=== PATIENT | male | born 1985 | race Asian ===

== ENCOUNTER 2017-10-13 19:54 | Emergency (ER) | payer OTHER ==
[~2017-10-13] VITALS: Ht 182.9 cm; Wt 86.2 kg
[2017-10-13] MEDS ORDERED: ZYPREXA ZYDI20 MG PO (20:00)
[2017-10-13] MEDS ORDERED: TRILEPTAL150 MG PO (20:01)
== END 2017-10-13 21:29 ==
LOC: ED 19:54
PROC: 2W3CX1Z Immobilization of Right Lower Arm using Splint (ICD-10-PCS; principal; 2017-10-13)
DX: S60.221A Contusion of right hand, initial encounter (principal); S00.93XA Contusion of unspecified part of head, initial encounter; S62.354A Nondisplaced fracture of shaft of fourth metacarpal bone, right hand, initial encounter for closed fracture; R51 Headache; Y04.0XXA Assault by unarmed brawl or fight, initial encounter; Y92.149 Unspecified place in prison as the place of occurrence of the external cause
CPT/HCPCS: 99283